=== PATIENT | male | born 1945 | race Caucasian/White ===

== ENCOUNTER 2018-04-19 14:43 | Emergency (ER) | payer OTHER ==
[2018-04-19 15:00] VITALS: BP 127/70; TEMP 97.7; BMI 26.6
--- NOTE | 2018-04-19 15:15 | ED.PDOC ---
General ED Provider: Dr. PERLA RIVERA Chief Complaint: Urinary Problem Stated Complaint: Patient is a 72 year old male who comes to the ER with C/O painful urination and frequency for the past 3 days Time Seen by Physician: 15:14 Mode of Arrival: Walk-In Information Source: Patient Nursing and Triage Documentation Reviewed and Agree: Yes Does patient meet sepsis criteria?: No System Inflammatory Response Syndrome: Not Applicable Sepsis Protocol: For patient's 13 years and over: Temp is 96.8 and below OR 101 and greater Pulse >90 BPM Resp >20/minute Acutely Altered Mental Status Are patient's symptoms suggestive of a new infection, such as: -Pneumonia -Skin, Soft Tissue -Endocarditis -UTI -Bone, Joint Infection -Implantable Device -Acute Abdominal Infection -Wound Infection -Meningitis -Blood Stream Catheter Infection -Unknown Review of Systems - Review Of Systems Constitutional: Reports: No symptoms Eyes: Reports: No symptoms Ears, Nose, Mouth, Throat: Reports: No symptoms Respiratory: Reports: No symptoms Cardiac: Reports: No symptoms GI: Reports: No symptoms : Reports: Burning, Dysuria, Pain Musculoskeletal: Reports: No symptoms Skin: Reports: No symptoms Neurological: Reports: Anxiety Endocrine: Reports: No symptoms Hematologic/Lymphatic: Reports: No symptoms All Other Systems: Reviewed and Negative Past Medical History - Past Medical History Previously Healthy: Yes Endocrine: Reports: DM 2 Cardiovascular: Reports: Hypertension Respiratory: Reports: None Hematological: Reports: None Gastrointestinal: Reports: None Genitourinary: Reports: None Neuro/Psych: Reports: None Musculoskeletal: Reports: None Cancer: Reports: None Other Pertinent Past Medical History: scleroderma, Raynauds, diabetic neuropathy - Surgical History General Surgical History: Reports: Orthopedic (Toe amputation ) - Family History Family History: Reports: None - Social History Smoking Status: Former smoker Hx Substance Use: No Alcohol Screening: None - Immunizations Tetanus Shot up to Date: Yes Physical Exam - Physical Exam Appearance: Ill-appearing Ill-appearing: Mild Pain Distress: Moderate Eyes: KARI, EOMI, Conjunctiva clear ENT: Ears normal, Nose normal, Oropharynx normal Respiratory: Airway patent, Breath sounds clear, Breath sounds equal, Respirations nonlabored Cardiovascular: RRR, Pulses normal, No rub, No murmur GI/: Soft, Nontender, No masses, Bowel sounds normal, No Organomegaly Musculoskeletal: Normal strength, ROM intact, No edema, No calf tenderness Skin: Warm, Dry, Normal color Neurological: Sensation intact, Motor intact, Reflexes intact, Cranial nerves intact, Alert, Oriented Psychiatric: Anxious Critical Care Note - Critical Care Note Total Time (mins): 0 Course - Course Orders, Labs, Meds: Lab Review 04/19/18 15:11 Urine Color [place] Urine Clarity Clear Urine pH 7.0 Ur Specific [place] 1.015 Urine Protein Negative Urine Glucose (UA) Negative Urine Ketones Negative Urine Blood Negative Urine Nitrite Positive Urine Bilirubin Negative Urine Urobilinogen 1.0 Ur Leukocyte Esterase Negative Urine Microscopic WBC 0-2 Ur Squamous Epith Cells Not present Orders Category Date Time Status URINALYSIS C & S IF INDICATED Stat LAB 04/19/18 15:11 Completed Phenazopyridine HCl [Pyridium] MEDS 04/19/18 15:31 Discontinued 100 mg PO ONCE STA Medications Discontinued Medications Generic Name Dose Route Start Last Admin Trade Name Freq PRN Reason Stop Dose Admin Phenazopyridine HCl 100 mg 04/19/18 15:31 04/19/18 15:37 Pyridium PO 04/19/18 15:32 100 mg ONCE STA Administration Vital Signs: Temp Pulse Resp BP Pulse Ox 04/19/18 14:43 97.7 F 74 20 127/70 94 L Departure - Departure Time of Disposition: 15:52 Disposition: HOME SELF-CARE Discharge Problem: Urinary tract infectious disease Condition: Stable Pt referred to PMD for follow-up: Yes IPMP verified?: No Additional Instructions: Push fluids Follow up with PCP in 3 days Take medications as prescribed. Prescriptions: Sulfamethoxazole/Trimethoprim [Bactrim Ds 800/160 mg] 1 tab PO Q12HR #14 tablet Phenazopyridine HCl [Pyridium] 100 mg PO TID PRN #10 tablet PRN Reason: Urinary Burning. Tramadol HCl [Ultram] 50 mg PO Q6H PRN #7 tablet PRN Reason: Severe Pain Allergies/Adverse Reactions: Allergies amoxicillin Adverse Reaction (Verified 04/19/18 14:50) clavulanic acid [From Augmentin] Adverse Reaction (Verified 04/19/18 14:51) Penicillins Adverse Reaction (Verified 04/19/18 14:51) Home Medications: Ambulatory Orders Hum Insulin NPH/Reg Insulin Hm [Humulin 70-30] 1 unit SUBCUT PRN 04/19/18 Lisinopril [Zestril] 5 mg PO DAILY 04/19/18 Metformin HCl 1,000 mg PO BID 04/19/18 Omeprazole 10 mg PO BID 04/19/18 Phenazopyridine HCl [Azo Standard] 95 mg PO TID 04/19/18 Phenazopyridine HCl [Pyridium] 100 mg PO TID PRN #10 tablet 04/19/18 Sulfamethoxazole/Trimethoprim [Bactrim Ds 800/160 mg] 1 tab PO Q12HR #14 tablet 04/19/18 Tramadol HCl [Ultram] 50 mg PO Q6H PRN #7 tablet 04/19/18 Disposition Discussed With: Patient, Family
[2018-04-19] MEDS ORDERED: PYRIDIUM PO STA (15:31)
== END 2018-04-19 16:07 | disposition home or self-care (01) ==
LOC: ED 14:43
DX: N39.0 Urinary tract infection, site not specified (principal)
CPT/HCPCS: 81001; 99283

== ENCOUNTER 2018-04-27 08:00 | Emergency (ER) ==
[2018-04-27 08:09] VITALS: BP 146/81; TEMP 98.5; BMI 25.8
--- NOTE | 2018-04-27 08:25 | ED.PDOC ---
General ED Provider: Dr. MARCUS ARCHER-ER Chief Complaint: Urinary Problem Stated Complaint: it carlson when i pee Time Seen by Physician: 08:10 Mode of Arrival: Walk-In Information Source: Family Exam Limitations: No limitations Nursing and Triage Documentation Reviewed and Agree: Yes Does patient meet sepsis criteria?: No System Inflammatory Response Syndrome: Not Applicable Sepsis Protocol: For patient's 13 years and over: Temp is 96.8 and below OR 101 and greater Pulse >90 BPM Resp >20/minute Acutely Altered Mental Status Are patient's symptoms suggestive of a new infection, such as: -Pneumonia -Skin, Soft Tissue -Endocarditis -UTI -Bone, Joint Infection -Implantable Device -Acute Abdominal Infection -Wound Infection -Meningitis -Blood Stream Catheter Infection -Unknown Complaint Exam - Complaint/Exam Patient Complains of: Reports: Dysuria Onset/Duration: 2 days Symptoms Are: Still present Initial Severity: Mild Current Severity: Mild Character: Reports: Burning Aggravating: Reports: None Alleviating: Reports: None Associated Signs and Symptoms: Reports: Dysuria Related Surgical History: Reports: Cystoscopy Abdominal Findings: Present: None Differential Diagnoses: Other Review of Systems - Review Of Systems Constitutional: Reports: No symptoms Eyes: Reports: No symptoms Ears, Nose, Mouth, Throat: Reports: No symptoms Respiratory: Reports: No symptoms Cardiac: Reports: No symptoms GI: Reports: No symptoms : Reports: Burning, Dysuria, Urgency Musculoskeletal: Reports: No symptoms Skin: Reports: No symptoms Neurological: Reports: No symptoms Endocrine: Reports: No symptoms Hematologic/Lymphatic: Reports: No symptoms All Other Systems: Reviewed and Negative Past Medical History - Past Medical History Previously Healthy: Yes Endocrine: Reports: DM 2 Cardiovascular: Reports: Hypertension Respiratory: Reports: None Hematological: Reports: None Gastrointestinal: Reports: None Genitourinary: Reports: None Neuro/Psych: Reports: None Musculoskeletal: Reports: None Cancer: Reports: None Other Pertinent Past Medical History: scleroderma, Raynauds, diabetic neuropathy - Surgical History General Surgical History: Reports: Orthopedic (Toe amputation ) - Family History Family History: Reports: None - Social History Smoking Status: Former smoker Hx Substance Use: No Alcohol Screening: None - Immunizations Tetanus Shot up to Date: Yes Physical Exam - Physical Exam Appearance: Well-appearing Eyes: KARI, EOMI, Conjunctiva clear ENT: Ears normal Neck: Supple Respiratory: Airway patent Cardiovascular: RRR GI/: Soft, Nontender, No masses, Bowel sounds normal, No Organomegaly Musculoskeletal: Normal strength, ROM intact, No edema, No calf tenderness Skin: Warm, Dry, Normal color Neurological: Sensation intact, Motor intact, Reflexes intact, Cranial nerves intact, Alert, Oriented Psychiatric: Affect appropriate, Mood appropriate Critical Care Note - Critical Care Note Total Time (mins): 0 Course - Course Orders, Labs, Meds: Orders Category Date Time Status Bladder [ED BLADDER SCAN] .ONCE EMERGENCY 04/27/18 08:13 Ordered URINALYSIS C & S IF INDICATED Stat LAB 04/27/18 08:09 Ordered URINE CULTURE Stat LAB 04/27/18 08:09 Ordered Vital Signs: Temp Pulse Resp BP Pulse Ox 04/27/18 08:00 98.5 F 100 H 16 146/81 H 95 Departure - Departure Time of Disposition: 08:24 Disposition: HOME SELF-CARE Discharge Problem: Urinary symptoms Instructions: Dysuria (ED) Condition: Good Pt referred to PMD for follow-up: No IPMP verified?: No Additional Instructions: cipro 500mg bid x10 days--pyridium 200mg tid x 2 days--call dr tapia tomorrow Allergies/Adverse Reactions: Allergies amoxicillin Adverse Reaction (Verified 04/19/18 14:50) clavulanic acid [From Augmentin] Adverse Reaction (Verified 04/19/18 14:51) Penicillins Adverse Reaction (Verified 04/19/18 14:51) Home Medications: Ambulatory Orders Hum Insulin NPH/Reg Insulin Hm [Humulin 70-30] 1 unit SUBCUT PRN 04/19/18 Lisinopril [Zestril] 5 mg PO DAILY 04/19/18 Metformin HCl 1,000 mg PO BID 04/19/18 Omeprazole 10 mg PO BID 04/19/18 Phenazopyridine HCl [Azo Standard] 95 mg PO TID 04/19/18 Phenazopyridine HCl [Pyridium] 100 mg PO TID PRN #10 tablet 04/19/18 Sulfamethoxazole/Trimethoprim [Bactrim Ds 800/160 mg] 1 tab PO Q12HR #14 tablet 04/19/18 Tramadol HCl [Ultram] 50 mg PO Q6H PRN #7 tablet 04/19/18 Disposition Discussed With: Patient, Family
== END 2018-04-27 08:34 | disposition home or self-care (01) ==
LOC: ED 08:00
DX: R30.0 Dysuria (principal); R35.0 Frequency of micturition
CPT/HCPCS: 51798; 81001; 87086; 99282